=== PATIENT | female | born 1950 | race Caucasian/White ===

== ENCOUNTER → 2022-06-02 | Outpatient (CLI) | LOC: M SOG 08:44 | PROVIDERS: ATTEND Orthopaedic Surgery Adult Reconstructive Orthopaedic Surgery | DX: M25.562 Pain in left knee (principal) ==

== ENCOUNTER → 2022-09-12 | Outpatient (CLI) | payer MEDICARE | LOC: M PLAIMG 15:46 | PROVIDERS: ATTEND Orthopaedic Surgery Adult Reconstructive Orthopaedic Surgery | DX: M23.92 Unspecified internal derangement of left knee (principal) ==

== ENCOUNTER → 2022-11-02 | Outpatient (CLI) | payer MEDICARE ==
[~2022-11-02] MED LIST: MELO15TA28 PO
== END ==
LOC: M LABSMTC 08:57
PROVIDERS: ATTEND Anesthesiology
DX: Z01.812 Encounter for preprocedural laboratory examination (principal); Z11.52 Encounter for screening for COVID-19

== ENCOUNTER 2022-11-07 08:08 | Day surgery (SDC) | payer MEDICARE ==
[~2022-11-07] VITALS: Ht 170.2 cm; Wt 77.1 kg
[~2022-11-07 08:08] MED LIST changes: +ACETAMINOPHEN 500 MG TAB PO ONE; +CelecoXIB 400 MG CAP PO ONE; +GABAPENTIN 300 MG CAP PO ONE; +ONDANSETRON 4MG 2ML VIAL IV ONE
[2022-11-07] MEDS ORDERED: propofoL 200 MG/20 ML VIAL As Ordered ONE (08:18)
[2022-11-07] MEDS ORDERED: LIDOCAINE 2% 100MG/5ML SDV (FOR ANES.) As Ordered ONE (08:18)
[2022-11-07] MEDS ORDERED: ONDANSETRON 4MG 2ML VIAL As Ordered ONE (08:18)
[2022-11-07] MEDS ORDERED: LR 1,000 ML IV SCH ×2 (08:25→12:00)
[2022-11-07] MEDS ORDERED: fentaNYL 100 MCG/2 ML INJECTION As Ordered ONE (09:44)
[2022-11-07] MEDS ORDERED: EPINEPHrine INJ 1 MG/ML 1ML AMP As Ordered ONE (10:40)
[2022-11-07] MEDS ORDERED: BUPIVACAINE/EPIN 0.5% 30ML VIAL As Ordered ONE (10:40)
[2022-11-07] MEDS ORDERED: SENN8.6T28 PO (11:58)
[2022-11-07] MEDS ORDERED: OXYC-517 PO (11:58)
[2022-11-07] MEDS ORDERED: MORPHINE 2 MG/ML 1ML VIAL IV PRN (12:00)
[2022-11-07] MEDS ORDERED: ONDANSETRON 4MG 2ML VIAL IV PRN (12:00)
[2022-11-07] MEDS ORDERED: fentaNYL 100 MCG/2 ML INJECTION IV PRN (12:00)
[2022-11-07] MEDS ORDERED: oxyCODONE 5MG TAB PO PRN (12:00)
[2022-11-07] MEDS ORDERED: METOCLOPRAMIDE INJ 10MG/2ML VIAL IV PRN (12:00)
[2022-11-07 15:48] VITALS: BP 165/77
== END 2022-11-07 16:24 | disposition home or self-care (01) ==
LOC: M SDC 08:08
PROVIDERS: ATTEND Orthopaedic Surgery Adult Reconstructive Orthopaedic Surgery
DX: M23.8X2 Other internal derangements of left knee (principal); M25.562 Pain in left knee; M19.90 Unspecified osteoarthritis, unspecified site; Z79.1 Long term (current) use of non-steroidal anti-inflammatories (NSAID)
CPT/HCPCS: 29880; 97116; J1100; J2405; J3010